=== PATIENT | male | born 1970 | race African-American/Black ===

== ENCOUNTER 2016-11-12 10:05 | Emergency (ER) | payer OTHER ==
[~2016-11-12] VITALS: Wt 95.3 kg
[2016-11-12] MEDS ORDERED: APRESOLINE25 MG PO (10:13)
[2016-11-12] MEDS ORDERED: OMEPRAZOLE40 MG PO (10:13)
[2016-11-12] MEDS ORDERED: BUSPAR15 MG PO (10:13)
[2016-11-12] MEDS ORDERED: VITAMIN D50000 I3 PO (10:14)
[2016-11-12] MEDS ORDERED: TOPIRAMATE50 M2 PO (10:14)
[2016-11-12] MEDS ORDERED: HYDROXYZINE PAM50 MG PO (10:14)
[2016-11-12] MEDS ORDERED: SIMVASTATIN40 MG PO (10:15)
[2016-11-12] MEDS ORDERED: METOPROLOL SUC200 MG PO (10:15)
[2016-11-12] MEDS ORDERED: FLUOXETINE HCL40 MG PO (10:15)
[2016-11-12] MEDS ORDERED: LISINOPRIL40 MG PO (10:15)
[2016-11-12] MEDS ORDERED: ZETIA10 MG PO (10:16)
[2016-11-12 10:46] LABS: BASO # 0.1 10*3/uL (0.0-0.1); BASO % 0.6 % (0.0-1.0); EOS # 0.1 10*3/uL (0.0-0.4); EOS % 0.9 % (1.0-4.0); HEMATOCRIT 49.3 % (42.0-52.0); LYMPH # 2.1 10*3/uL (1.3-4.4); LYMPH % 23.9 % (27.0-41.0); MEAN CORPUSCULAR HGB 28.6 pg (27.0-31.0); MEAN CORPUSCULAR HGB CONC 32.5 g/dl (33.0-37.0); MEAN PLATELET VOLUME 11.8 fl (9.6-12.3); MONO # 0.9 10*3/uL (0.1-1.0); MONO % 10.4 % (3.0-9.0); NEUT # 5.6 10*3/uL (2.3-7.9); NEUT % 63.7 % (47.0-73.0); PLATELET COUNT AUTOMATED 201 10*3/uL (130-400); RED CELL DISTRI WIDTH 13.7 % (0-14.5); WHITE BLOOD COUNT 8.7 10*3/uL (4.8-10.8)
[2016-11-12 11:02] LABS: ALBUMIN 3.5 gm/dl (3.1-4.5); ALKALINE PHOSPHATASE 93 U/L (45-117); BILIRUBIN, TOTAL 0.8 mg/dl (0.2-1.0); BUN 8 mg/dl (7-24); C-REACTIVE PROTEIN 6.28 MG/DL (0-0.3); CARBON DIOXIDE 27 mmol/L (21-32); CHLORIDE 105 mmol/L (98-107); EST GLOM FILT AFRICAN AMERICAN > 60 ml/min; GLUCOSE 163 mg/dL (65-99); POTASSIUM 3.6 mmol/L (3.5-5.1); SGOT/AST 16 IU/L (3-35); SGPT/ALT 30 U/L (12-78); SODIUM 141 mmol/L (136-145); TOTAL PROTEIN 7.3 gm/dL (6.4-8.2)
[2016-11-12] MEDS ORDERED: CEPHALEXIN500 M1 PO (11:22)
[2016-11-12] MEDS ORDERED: PERCOCET 325 MG1 TA2 PO (11:22)
[2016-11-12] MEDS ORDERED: Motrin,Rufen800 MG PO (11:22)
== END 2016-11-12 11:35 | disposition home or self-care (01) ==
LOC: ED 10:05
PROVIDERS: Registered Nurse
DX: L03.116 Cellulitis of left lower limb (principal); M25.475 Effusion, left foot; I10 Essential (primary) hypertension; Z79.899 Other long term (current) drug therapy